=== PATIENT | male | born 1955 | race Two or more races ===

== ENCOUNTER → 2024-10-01 | Outpatient (BNVA) | payer MEDICARE, MEDICAID, SELFPAY | END | disposition home or self-care (01) | PROVIDERS: PCP Family Medicine; Referring Provider Family Medicine; Visit Provider Urology | DX: N40.1 Benign prostatic hyperplasia with lower urinary tract symptoms (principal); N13.8 Other obstructive and reflux uropathy; C67.9 Malignant neoplasm of bladder, unspecified; I10 Essential (primary) hypertension; E78.00 Pure hypercholesterolemia, unspecified; I25.10 Atherosclerotic heart disease of native coronary artery without angina pectoris; E11.9 Type 2 diabetes mellitus without complications; Z95.1 Presence of aortocoronary bypass graft | CPT/HCPCS: 81003; 99212; G0463 ==

== ENCOUNTER 2025-03-07 20:17 | Emergency (ER) | payer MEDICARE, MEDICAID, SELFPAY ==
[2025-03-07 20:18] VITALS: BMI 23.8
[2025-03-07 20:33] VITALS: BP 124/75; PULSE 60; RESP 20; TEMP 37.1; O2SAT 97
--- NOTE | 2025-03-07 20:37 | EKG_ITS ---
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
--- NOTE | 2025-03-07 20:37 | XR_ITS ---
Examination: PA lateral chest 2 views Technique: Upright PA lateral chest 2 views Exam date and time: March 07, 2025 2103 hrs. Comparison August 04, 2020 Indications: Chest pain today. Findings: Median sternotomy wires Normal heart size Atelectasis versus early pneumonia left base No pulmonary edema Impression: Atelectasis versus early pneumonia left base, clinical correlation advised
--- NOTE | 2025-03-07 20:38 | XR_ITS ---
Examination: Shoulder,right, 3 views Technique: Shoulder AP internal rotation, AP external rotation, Y view shoulder, 3 views Exam date and time :March 07, 2025 2103 hrs. Indications: Shoulder pain beginning today Findings: Moderate narrowing glenohumeral joint No shoulder fracture or dislocation Mild calcific tendinitis Impression: Moderate narrowing glenohumeral joint Mild shoulder calcific tendinitis
--- NOTE | 2025-03-07 20:40 | PD.EDRME ---
Rapid Medical Screening Exam RME Arrival date/time: 03/07/25 20:17 69 yo m present to ED for c/o of dizziness, headache, shoulder pain I have greeted and performed a focused initial assessment of this patient. A comprehensive ED assessment and evaluation of the patient, analysis of all test results, and completion of the medical decision making process will be conducted by additional ED providers. Chief Complaint: Extremity Injury, Upper Time Seen by Provider: 03/07/25 20:30 Vital signs: Vital Signs Temperature 98.7 F 03/07/25 20:33 Pulse Rate 60 03/07/25 20:33 Respiratory Rate 20 03/07/25 20:33 Blood Pressure 124/75 03/07/25 20:33 Pulse Oximetry (%) 97 03/07/25 20:33 Oxygen Delivery Method Room Air 03/07/25 20:33
[2025-03-07 21:43] LABS: Basophils % (Auto) 1 % (0-2.5); Eosinophils # (Auto) 0.2 Thou/mm3 (0.0-0.5); Eosinophils % (Auto) 4 % (0-10); Hematocrit 39.7 % (41.0-53.0); Hemoglobin 13.9 g/dL (13.5-16.0); Immature Granulocytes % (Auto) 0 % (0-0); Immature Granulocytes Auto 0.01 Thou/mm3 (0.00-0.00); Lymphocytes # (Auto) 2.1 Thou/mm3 (1.0-4.8); Lymphocytes % (Auto) 39 % (10-50); Mean Corpuscular Hemoglobin 28.7 pg (25.0-35.0); Mean Corpuscular Volume 82 fL (80-100); Monocytes # (Auto) 0.6 Thou/mm3 (0.0-0.8); Monocytes % (Auto) 11 % (0-12); Neutrophils # (Auto) 2.4 Thou/mm3 (1.8-7.7); Neutrophils % (Auto) 45 % (37-80); Nucleated Red Blood Cell % 0 /100 WBC (0); Platelet Count 206 Thou/mm3 (140-440); RDW Standard Deviation 35.8 fL (35.1-43.9); Red Blood Count 4.84 Miln/mm3 (4.50-5.90); White Blood Count 5.4 Thou/mm3 (3.8-10.6)
[2025-03-07 22:04] LABS: Anion Gap 8 (7-16); BUN/Creatinine Ratio 13 Ratio (12-20); Blood Urea Nitrogen 12 mg/dL (9-23); Carbon Dioxide 28.5 mMol/L (20.0-31.0); Chloride 103 mMol/L (98-107); Creatinine (Component) 0.9 mg/dL (0.6-1.3); Estimated Creatinine Clearance 74.5 mL/min (>60); Potassium 3.8 mMol/L (3.4-5.1); Sodium 139 mMol/L (136-145); eGFR > 60 See Note
[2025-03-07 22:05] LABS: Alanine Aminotransferase 25 U/L (10-49); Albumin, Serum 4.5 gm/dL (3.4-4.8); Alkaline Phosphatase 59 U/L (46-116); Aspartate Amino Transferase 22 U/L (0-34); Bilirubin,Total 0.7 mg/dL (0.3-1.2); Calcium 9.5 mg/dL (8.3-10.6); Calcium (Corrected) 9.5 mg/dL (8.5-10.1); Globulin 2.3 gm/dL (2.3-3.5); Glucose 120 mg/dL (74-106); Lipase 37 U/L (12-53); Osmolality,Calculated 278 (275-295); Total Protein 6.8 gm/dL (5.7-8.2); Troponin I < 0.020 ng/mL (0.0-0.045)
--- NOTE | 2025-03-07 22:34 | PD.EDUPEX ---
Upper Extremity Injury RME/HPI General Chief Complaint: Extremity Injury, Upper Stated Complaint: RT SHOULDER PAIN Time Seen by Provider: 03/07/25 20:30 Arrival date/time: 03/07/25 20:17 69 year old male present to emergency room with c/o of intermittent nontraumatic shoulder pain ongoing. LOCATION: shoulder SEVERITY: Symptoms are described as being severe with limitations on activities of daily living QUALITY: Symptoms are described as being dull or achy CONTEXT: unknown DURATION/TIMING: The symptoms started approximately worsen the past few days ASSOCIATED SYMPTOMS: dizziness , headache MODIFYING FACTORS: The patient is unable to identify any alleviating or aggravating symptoms. PERTINENT ROS: no fevers, no headache, no neck or chest pain/sob, leg swelling, , no unexplained nausea or vomiting, no focal neurological deficits REVIEW OF SYSTEMS: See History of Present Illness - with the exception of those mentioned in the history of present illness, all other systems reviewed and reported as negative GENERAL: In general the patient is awake, interactive, in an emergency department gurney. HEAD/EYES/EARS/NOSE/THROAT: normo-cephalic, atraumatic, mucus membranes are moist, anicteric, palpebral conjunctiva is pink, trachea is midline. CARDIOVASCULAR: regular rate and regular rhythm, no murmurs, heart sounds are not distant, strong pulses in all four extremities that are equal and symmetric bilateral upper and lower extremities, normal capillary refill. CHEST/PULMONARY: normal chest rise and fall, good air movement, clear to auscultation bilaterally, normal inspiratory to expiratory ratios without evidence of respiratory distress. NECK: No midline/Paraspinal tenderness, no step off ROM/Strenght intact No Kernig and bruzinski sign. No trauma ABDOMEN: soft, not tender, no masses appreciated BACK: normal range of motion without pain. NEUROLOGICAL: cranio-facial features are symmetric, moves all four extremities equally without obvious limitations or weakness. EXTREMITY: + right shoulder tenderness, no deformity no tenderness to palpation over the long bones or large joints of the bilateral lower extremities, no joint swelling, no joint erythema, no signs of trauma, no unilateral leg swelling and no peripheral edema. SKIN: warm, dry, well-perfused, no jaundice, no rash, no telangiectasias or petechia. PSYCH: calm, cooperative, no evidence of psychosis or agitation RME / HPI RME / HPI narrative: 03/07/25 20:17 69 yo m present to ED for c/o of dizziness, headache, shoulder pain I have greeted and performed a focused initial assessment of this patient. A comprehensive ED assessment and evaluation of the patient, analysis of all test results, and completion of the medical decision making process will be conducted by additional ED providers. Related Data Home Medications ?Medication ?Instructions ?Recorded ?Confirmed metformin 500 mg tablet 500 mg PO BID 11/03/19 10/01/24 carvedilol 6.25 mg tablet 6.25 mg PO BID 03/15/24 10/01/24 hydrochlorothiazide 12.5 mg tablet 12.5 mg PO QDAY 03/15/24 10/01/24 atorvastatin 80 mg tablet 80 mg PO QPM 07/06/24 10/01/24 lisinopril 40 mg tablet 40 mg PO QDAY 07/06/24 10/01/24 multivitamin 1 tab PO QAM 07/06/24 10/01/24 omega 6-foi-ewv-fish oil 60 mg-90 1 cap PO QDAY 07/06/24 10/01/24 mg-500 mg capsule (Fish Oil) aspirin 81 mg tablet,delayed 81 mg PO QDAY 10/01/24 10/01/24 release Previous Rx's ?Medication ?Instructions ?Recorded finasteride 5 mg tablet 5 mg PO QDAY #30 tabs 07/07/24 hydrocodone 7.5 mg-acetaminophen 1 tab PO TID PRN pain #20 tabs 07/07/24 300 mg tablet tamsulosin 0.4 mg capsule (Flomax) 0.4 mg PO Q24H #90 caps 07/07/24 meloxicam 7.5 mg tablet 7.5 mg PO QDAY #30 tabs 03/07/25 Allergies Allergy/AdvReac Type Severity Reaction Status Date / Time No Known Allergies Allergy Unknown Verified 10/01/24 09:40 Course Course Course Narrative: basic labs, ekg cxr, shoulder , influenza Patient presenting with shoulder pain.? Above radiographs orders without evidence of acute fracture.? Patient may also use OTC medications as needed for pain. Symptomatic care instructions were provided.? Follow up with primary physician or sports medicine clinic if continued pain. Return to ED if pain uncontrolled, neurovascular change, or other concerns. Toradol 30mg IM given to help with pain. Plan:? ? Advised Pt on supportive therapies for shoulder pain, MOBIC 7.5mg #30 cold application, ROM and strengthening exercises, refraining from activities that may exacerbate symptoms (tennis, carrying objects w/ forearm extensors, etc), lift objects w/ palms facing upward, and to advance activities conservatively as tolerated. Advised Pt to f/up w/ PCP in 1-3wk if symptoms are refractory to above therapies Instructed Pt to f/up w/ PCP or ETC should Sx worsen or not improve. Pt verbally expressed understanding and all questions were addressed to Pt's satisfaction. Quality Measures none Orders Category Date Time Status Bedside Influenza A&B Antigen Test NOW Care 03/07/25 20:38 Completed EKG (ED ONLY) *Do not use* NOW Care 03/07/25 20:37 Completed EKG (ED Only) Stat Exams 03/07/25 20:37 Draft XR chest 2V Stat Exams 03/07/25 20:37 Completed XR shoulder RT min 2V Stat Exams 03/07/25 20:38 Completed CBC Stat Lab 03/07/25 21:12 Completed CMP [Comprehensive Metabolic Panel] Stat Lab 03/07/25 21:12 Completed Lipase Stat Lab 03/07/25 21:12 Completed Troponin I Stat Lab 03/07/25 21:12 Completed Ketorolac Inj [Toradol Inj] Med 03/07/25 22:31 Discontinued 30 mg IM X1 ONE Reevaluation(s) Reevaluation #1: pain improved Vital Signs Vital signs: Vital Signs Temperature 98.7 F 03/07/25 20:33 Pulse Rate 60 03/07/25 20:33 Respiratory Rate 20 03/07/25 20:33 Blood Pressure 124/75 03/07/25 20:33 Pulse Oximetry (%) 97 03/07/25 20:33 Oxygen Delivery Method Room Air 03/07/25 20:33 Extremity Injury Patient data External records reviewed:: [facility] previous records Clinical information provided by:: patient Social determinants that could affect healthcare access:: none Patient has the following chronic illnesses:: as stated in chart How is presenting disease/condition affected by chronic disease/condition?: no chronic disease Evaluation data The following diagnostics were reviewed and interpreted by me:: lab results, radiology exam(s) and EKG tracing(s) Lab and/or radiology exams considered but not ordered:: n/a Interpretation Summary: cxr: Median sternotomy wires Normal heart size Atelectasis versus early pneumonia left base No pulmonary edema Impression: Atelectasis versus early pneumonia left base, clinical correlation advised shoulder: Moderate narrowing glenohumeral joint No shoulder fracture or dislocation Mild calcific tendinitis Impression: Moderate narrowing glenohumeral joint Mild shoulder calcific tendinitis cbc/cmp/trop wnl Medications / Prescriptions Medications or Prescriptions considered but not ordered:: n/a Medication administrations:: Medication Administration History Discontinued Medications Ketorolac Tromethamine (Ketorolac Inj 60 Mg/2 Ml Vial) 30 mg IM X1 ONE Stop: 03/07/25 22:32 Last Admin: 03/07/25 22:41 Dose: 30 mg Documented By: KF as stated Consultations Consultation(s) initiated? (list below): No Diagnosis Upper Extremity Injury Differential Diagnosis: fracture of humerus and other (OA, mi/nstemi, flu, anemia, dehydration ) Most likely diagnosis given after review of the tests above:: shoulder pain Admission Indicated Admission indicated?: not indicated Admission Request Was there a request for admission?: No Disposition Plan Disposition Plan: Discharge Discharge Attestation Discharge Attestation: The patient and all family members were given an opportunity to ask questions and understood the discharge instructions. Discharge instructions specifically effects, indications for sooner follow up or return to the emergency department, and the expected course of current diagnosis. Patient condition: Stable Discharge Plan Plan Patient Disposition: HOME (Self Care) Prescriptions/Referrals Prescriptions/Med Rec: New meloxicam 7.5 mg tablet 7.5 mg PO QDAY Qty: 30 0RF No Action carvedilol 6.25 mg tablet 6.25 mg PO BID Rx Instructions: must administer with a meal/food hydrochlorothiazide 12.5 mg tablet 12.5 mg PO QDAY aspirin 81 mg tablet,delayed release (DR/EC) 81 mg PO QDAY metformin 500 mg Tablet 500 mg PO BID multivitamin Tablet 1 tab PO QAM atorvastatin 80 mg Tablet 80 mg PO QPM lisinopril 40 mg Tablet 40 mg PO QDAY omega 2-csy-fnk-fish oil [Fish Oil] 60-90-500 mg Capsule 1 cap PO QDAY hydrocodone-acetaminophen 7.5-300 mg tablet 1 tab PO TID MDD 4 PRN (Reason: pain) Qty: 20 0RF tamsulosin [Flomax] 0.4 mg capsule 0.4 mg PO Q24H Qty: 90 0RF Rx Instructions: administer 30 minutes after same meal each day; swallow whole with liquid; do not crush/chew/dissolve/open finasteride 5 mg tablet 5 mg PO QDAY Qty: 30 0RF Referrals: Eddie Tamayo MD [Primary Care Provider] - In 1 week Problem List Clinical Impression: Acute shoulder pain Patient/Caregiver Discharge Instructions Education Materials: ED Shoulder Pain, Uncertain Cause Print Language: Lao Stand Alone Forms: [employer] Info., Patient Portal Info Letter
[2025-03-07] MEDS: KETOROLAC INJ 60 MG/2 ML VIAL 30 MG IM (22:41)
--- NOTE | 2025-03-07 23:04 | PC.NURSE ---
Provider discussed all lab results with patient. Patient gave verbal consent to provider to discuss lab results with patient's daughter. Patient and daughter appreciative.
== END 2025-03-07 23:08 | disposition home or self-care (01) ==
PROVIDERS: Physician Assistant; Emergency Provider Emergency Medicine; PCP Family Medicine
DX: M25.511 Pain in right shoulder (principal)
CPT/HCPCS: 36415; 71046; 73030; 80053; 83690; 84484; 85025; 87400; 93005; 96372; 99283; J1885

== ENCOUNTER → 2025-03-25 | Outpatient (BNVA) | payer OTHER, MEDICAID, SELFPAY | END | disposition home or self-care (01) | PROVIDERS: PCP Nurse Practitioner Family; Referring Provider Nurse Practitioner Family; Visit Provider Urology | DX: N40.1 Benign prostatic hyperplasia with lower urinary tract symptoms (principal); N13.8 Other obstructive and reflux uropathy; C67.9 Malignant neoplasm of bladder, unspecified; E11.9 Type 2 diabetes mellitus without complications; I10 Essential (primary) hypertension; I25.10 Atherosclerotic heart disease of native coronary artery without angina pectoris; E78.00 Pure hypercholesterolemia, unspecified; Z95.1 Presence of aortocoronary bypass graft | CPT/HCPCS: 99212; G0463 ==

== ENCOUNTER → 2025-05-09 | Outpatient (CLI) | payer OTHER, MEDICAID, SELFPAY ==
--- NOTE | 2025-05-09 13:30 | XR_ITS ---
Examination: Ultrasound soft tissue extremity left thigh TECHNIQUE: Grayscale sonographic images soft tissue left thigh Date and time: May 09, 2025 1332 hours INDICATIONS: Palpable lump left thigh noticed beginning 5 years ago, ultrasound left thigh December 31, 2018 soft tissue mass 3.9 x 1.5 x 2.6 cm FINDINGS: 3.0 x 1.4 x 3.1 cm hyperechoic mass in the soft tissue thigh, differential would include lipoma IMPRESSION: Smaller soft tissue mass in the thigh, differential would include lipoma, clinical correlation advised
== END | disposition home or self-care (01) ==
LOC: CDIM 13:18
DX: R22.42 Localized swelling, mass and lump, left lower limb (principal)
CPT/HCPCS: 76882

== ENCOUNTER → 2025-08-11 | Outpatient (BNVA) | payer OTHER, MEDICAID, SELFPAY | END | disposition home or self-care (01) | PROVIDERS: PCP Nurse Practitioner Family; Referring Provider Nurse Practitioner Family; Visit Provider Urology | DX: C67.9 Malignant neoplasm of bladder, unspecified (principal); R39.15 Urgency of urination; E11.9 Type 2 diabetes mellitus without complications; I10 Essential (primary) hypertension; E78.00 Pure hypercholesterolemia, unspecified; I25.10 Atherosclerotic heart disease of native coronary artery without angina pectoris; Z95.1 Presence of aortocoronary bypass graft | CPT/HCPCS: 81003; 99212; G0463 ==

== ENCOUNTER → 2025-09-16 | Outpatient (CLI) | payer OTHER, MEDICAID, SELFPAY ==
--- NOTE | 2025-09-16 09:08 | XR_ITS ---
Examination: Foot, right, 3 views Technique: AP, oblique, lateral views foot, 3 views Date and time of exam: September 16, 2025, 0914 hours INDICATION: Burning sensation in the right first digit 1 months. FINDINGS: Moderate osteopenia. Advanced osteoarthritis first metatarsophalangeal joint No fracture 2 mm plantar 4 mm posterior bony calcaneal spurs IMPRESSION: Advanced osteoarthritis first metatarsophalangeal joint
== END | disposition home or self-care (01) ==
PROVIDERS: PCP Nurse Practitioner Family; Referring Provider Nurse Practitioner Family; Visit Provider Nurse Practitioner Family
DX: M19.071 Primary osteoarthritis, right ankle and foot (principal)
CPT/HCPCS: 73630

== ENCOUNTER → 2025-11-03 | Outpatient (BNVA) | payer OTHER, MEDICAID, SELFPAY | END | disposition home or self-care (01) | PROVIDERS: PCP Nurse Practitioner Family; Referring Provider Nurse Practitioner Family; Visit Provider Urology | DX: N40.1 Benign prostatic hyperplasia with lower urinary tract symptoms (principal); R39.12 Poor urinary stream; I10 Essential (primary) hypertension | CPT/HCPCS: 51741; 51798 ==

== ENCOUNTER → 2025-11-07 | Outpatient (BNVA) | payer OTHER, MEDICAID, SELFPAY | END | disposition home or self-care (01) | PROVIDERS: PCP Nurse Practitioner Family; Referring Provider Nurse Practitioner Family; Visit Provider Urology | DX: N40.1 Benign prostatic hyperplasia with lower urinary tract symptoms (principal); N13.8 Other obstructive and reflux uropathy; I10 Essential (primary) hypertension | CPT/HCPCS: 76872 ==